=== PATIENT | female | born 1950 | race African-American/Black ===

== ENCOUNTER 2020-11-12 15:11 | Emergency (ER) | payer MEDICARE ==
[~2020-11-12] VITALS: Ht 180.3 cm; Wt 85.0 kg
[2020-11-12] MEDS ORDERED: TRAMADOL 50MG TABLET PO ONE (15:45)
[2020-11-12] MEDS ORDERED: ACETAMINOPHEN 325MG TABLET PO STA (16:49)
[2020-11-12 17:00] VITALS: BP 185/96
[2020-11-12] MEDS ORDERED: IBUP-2028 MT (17:42)
[2020-11-12] MEDS ORDERED: HYDR-4346 MT (17:42)
== END 2020-11-12 17:58 | disposition home or self-care (01) ==
LOC: ER 15:11
DX: S16.1XXA Strain of muscle, fascia and tendon at neck level, initial encounter (principal); S46.912A Strain of unspecified muscle, fascia and tendon at shoulder and upper arm level, left arm, initial encounter; I10 Essential (primary) hypertension; V49.49XA Driver injured in collision with other motor vehicles in traffic accident, initial encounter; Y93.89 Activity, other specified; Y92.411 Interstate highway as the place of occurrence of the external cause; Z91.14 Patient's other noncompliance with medication regimen
CPT/HCPCS: 72100; 73030; 93005; 99285